=== PATIENT | male | born 1990 | race Caucasian/White ===

== ENCOUNTER 2017-01-10 06:53 | Emergency (ER) | payer SELFPAY ==
[~2017-01-10] VITALS: Ht 175.3 cm; Wt 99.8 kg
[2017-01-10 06:55] VITALS: BP 143/87
--- NOTE | 2017-01-10 06:55 | NUR ---
PT BIB [facility].
--- NOTE | 2017-01-10 07:05 | NUR ---
Patient being evaluated by physician.
[2017-01-10 07:21] VITALS: BP 143/87
--- NOTE | 2017-01-10 07:22 | NUR ---
Patient discharged with v/s stable. Written and verbal after care instructions given and explained. Patient verbalized understanding. Police with in custody. All questions addressed prior to discharge. Advised to follow up with PMD.
== END 2017-01-10 07:22 ==
LOC: MED 06:53
DX: S00.81XA Abrasion of other part of head, initial encounter (principal); S60.511A Abrasion of right hand, initial encounter; X58.XXXA Exposure to other specified factors, initial encounter; Y93.89 Activity, other specified; Y92.89 Other specified places as the place of occurrence of the external cause; Y99.8 Other external cause status
CPT/HCPCS: 99283